=== PATIENT | male | born 1970 | race Hispanic/Latino ===

== ENCOUNTER 2021-04-30 13:06 | Outpatient (CLI) | payer BC | END 2021-04-30 13:07 | disposition home or self-care (01) | LOC: CSHULT 13:06 | PROVIDERS: ATTEND Family Medicine | DX: E04.2 Nontoxic multinodular goiter (principal) | CPT/HCPCS: 76536 ==

== ENCOUNTER → 2021-06-11 | Day surgery (SDC) | payer BC ==
[~2021-06-11] MED LIST: Lidocaine 1% PF 5 ML VIAL ONE; Sodium Bicarbonate 2.5 MEQ/5 ML VIAL ONE
[2021-06-11 08:16] VITALS: BP 111/76; TEMP 97.8
== END ==
LOC: CSHULT 07:44
PROVIDERS: ATTEND Family Medicine
DX: E04.2 Nontoxic multinodular goiter (principal)
CPT/HCPCS: 76536

== ENCOUNTER 2023-03-03 09:22 | Outpatient (CLI) | payer BC | END 2023-03-03 09:23 | disposition home or self-care (01) | LOC: CSHULT 09:22 | PROVIDERS: ATTEND Family Medicine | DX: E04.2 Nontoxic multinodular goiter (principal); E04.1 Nontoxic single thyroid nodule | CPT/HCPCS: 76536 ==